=== PATIENT | male | born 1980 | race Caucasian/White ===

== ENCOUNTER 2017-09-28 19:17 | Emergency (ER) | payer SELFPAY ==
[2017-09-28 20:07] VITALS: BP 131/92
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
== END 2017-09-28 21:08 | disposition left against medical advice (07) ==
LOC: ER 19:17
DX: S20.212A Contusion of left front wall of thorax, initial encounter (principal); F17.200 Nicotine dependence, unspecified, uncomplicated; E11.9 Type 2 diabetes mellitus without complications; W01.190A Fall on same level from slipping, tripping and stumbling with subsequent striking against furniture, initial encounter; Y92.009 Unspecified place in unspecified non-institutional (private) residence as the place of occurrence of the external cause